=== PATIENT | female | born 1990 | race Caucasian/White ===

== ENCOUNTER 2023-01-23 08:21 | Outpatient (AMB) | payer BC, SELFPAY ==
[2023-01-23 08:31] VITALS: BP 158/100; PULSE 110; O2SAT 100; BMI 37.6
--- NOTE | 2023-01-23 08:31 | A.OFFPC_ITS ---
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 per policy Accompanied by: Self / Same As Patient Allergies No Known Allergies Allergy (Verified 01/23/23 08:31) Medication List - Last Reconciled 01/23/23 by Pardeep Angulo MD levothyroxine 75 mcg PO DAILY sertraline 200 mg PO DAILY sertraline 100 mg PO DAILY Tobacco use date assessed: 05/30/22 Dental Screening Dental Screen Date: 01/23/23 Did you have a dental visit in the last 12 months?: Yes Did you have a dental problem in the last 6 months where you did not have access to dental care?: No Was dental information given to patient?: Patient has dentist HPI 6mth f/u HPI Details hypothyr on rx; has gained 20 lbs PFSH Medical History Obesity Hypertension Hypothyroidism Surgical History No pertinent past surgical history Family History Father Medical history unknown Mother Medical history unknown Family/Other Subarachnoid hemorrhage from multiple aneurysms Afib Substance use disorder Other Mental health disorder Social History Housing: House Alcohol intake: current Alcohol intake frequency: holidays/special occasions only Patient Tobacco Use Status: Never used Tobacco e-Cigarette/Vaping Use: Never Used Second Hand Smoke Exposure: No service: No Current occupational status: employed Cognitive needs: No Hearing needs: No Vision needs: No Questionnaire PHQ-9 Over the last 2 weeks, how often have you been bothered by any of the following problems? 1. Little interest or pleasure in doing things: not at all 2. Feeling down, depressed, or hopeless: not at all 3. Trouble falling or staying asleep, or sleeping too much: not at all 4. Feeling tired or having little energy: not at all 5. Poor appetite or overeating: not at all 6. Feeling bad about yourself - or that you are a failure or have let yourself or your family down: not at all 7. Trouble concentrating on things, such as reading the newspaper or watching television: not at all 8. Moving or speaking so slowly that other people could have noticed. Or the opposite - being so fidgety or restless that you have been moving around a lot more than usual: not at all 9. Thoughts that you would be better off or of hurting yourself in some way: not at all Total score: 0 Depression Screening Interpretation: Negative Depression Screening Done: Yes 38821 - PHQ-9 Billing: Yes Source: Developed by Drs. Po Reynolds, Nelda Martínez, Rigoberto Chauhan and colleagues, with an educational keith from [employer]. Thrive Questionnaire Date Thrive assessed: 05/30/22 AUDIT C Alcohol Use Questionnaire (AUDIT-C) 1. How often do you have a drink containing alcohol?: Monthly or less 2. How many drinks containing alcohol do you have on a typical day when you are drinking?: 1 or 2 3. How often do you have six or more drinks on one occasion?: Never Total Score: 1 Score Reviewed/Action Taken: Yes SANDER-7 AMB Questionnaire SANDER-7 Date SANDER - 7 assessed: 05/30/22 Feeling nervous, anxious, or on edge: 1 = Several days Not being able to stop or control worryin = Several days Worrying too much about different things: 1 = Several days Trouble relaxin = Not at all Being so restless that it is hard to sit still: 0 = Not at all Becoming easily annoyed or irritable: 1 = Several days Feeling afraid as if something awful might happen: 1 = Several days Total SANDER-7 score (0-4 normal; 5-9 mild; 10-14 moderate; 15-21 severe): 5 Source: Developed by Drs. Po Reyonlds, Nelda Martínez, Rigoberto Chauhan and colleagues, with an educational keith from [employer]. SANDER-7 Assessment Billing SANDER-7 Assessment Tool: SANDER-7 Assessment 72153 Review of Systems Const Denies chills, Denies headache(s) and Denies weight loss ENT Denies headache(s) Card Denies chest pain, Denies syncope, Denies irregular heart rhythm and Denies dyspnea Resp Denies chest congestion, Denies cough and Denies dyspnea GI Denies abdominal pain, Denies change in stool character, Denies nausea and Denies vomiting Musc Denies deformity and Denies joint swelling Neuro Denies syncope and Denies headache(s) Physical exam (Primary Care) Vital Signs: Last Vital Signs Pulse 110 H 01/23/23 08:31 BP 158/100 H 01/23/23 08:31 Pulse Ox 100 01/23/23 08:31 Oxygen Delivery Method Room Air 01/23/23 08:31 BMI result Body Mass Index 37.6 Tobacco/Smoking Status: Tobacco use Status Tobacco use date assessed 05/30/22 01/23/23 08:37 Patient Tobacco Use Status Never used Tobacco 01/23/23 08:37 e-Cigarette/Vaping Use Never Used 01/23/23 08:37 PHQ-9: PHQ-9 Score PHQ-9: Total score 0 01/23/23 08:37 Depression Screening Interpretation: Negative Thrive Assessment: Date of Thrive Assessment Date Thrive assessed 05/30/22 01/23/23 08:37 Const General: cooperative, comfortable, no acute distress and alert Neck Neck: Yes no lymphadenopathy Thyroid: Thyroid normal Resp Effort & Inspection: normal respiratory effort Auscultation: clear to auscultation bilaterally Percussion: percussion normal Cardio Jugular venous distension: no JVD Palpation: normal PMI Rate: regular rate Rhythm: regular rhythm Heart sounds: S1 normal heart sound present and S2 normal heart sound present GI Inspection: Yes normal to inspection Palpation (GI): No hepatosplenomegaly present Skin General skin exam: no rashes or lesions noted Extrem General: Yes no clubbing, cyanosis or edema Assessment and Plan Assessment & Plan (1) Hypothyroidism: Code(s): E03.9 - Hypothyroidism, unspecified Plan: labs; f/u 2 weeks Orders: Orders Lipid Panel Today E78.5 - Hyperlipidemia, unspecified Thyroid Stimulating Hormone Today E03.9 - Hypothyroidism, unspecified Comprehensive [place]. Panel Fast Today N28.9 - Disorder of kidney and ureter, unspecified Complete Blood Count Auto Diff Today D64.9 - Anemia, unspecified Coding Level of Care Code Est Pt Level 3 (80532) Diagnoses Hypothyroidism E03.9 Additional Codes SANDER-7 Assessment Billing - SANDER-7 Assessment Tool: SANDER-7 Assessment [id number] ([id number])
== END 2023-01-23 08:52 | disposition home or self-care (01) ==
LOC: HO.HMGH 08:21
PROVIDERS: PCP Internal Medicine; Visit Provider Internal Medicine
DX: E03.9 Hypothyroidism, unspecified (principal)
CPT/HCPCS: 99213

== ENCOUNTER 2023-02-06 08:31 | Outpatient (AMB) | payer BC, SELFPAY ==
[2023-02-06 08:37] VITALS: BP 160/100; PULSE 102; O2SAT 99; BMI 37.6
--- NOTE | 2023-02-06 08:37 | A.OFFPC_ITS ---
Vital Signs 02/06/23 08:37 Height 5 ft 1 in Weight 199 lb BMI 37.6 BP 160/100 H Blood Pressure Location Lt brachial Position Sitting Pulse 102 H Pulse Source Pulse Oximeter Pulse Oximetry (%) 99 Oxygen Delivery Method Room Air Intake Visit Reasons: 2 week f/u Greenhouse Technician Required: No Strip Stamp Straightener: Not Required per policy Accompanied by: Self / Same As Patient Allergies No Known Allergies Allergy (Verified 02/06/23 08:37) Medication List - Last Reconciled 02/06/23 by Pardeep Angulo MD levothyroxine 75 mcg PO DAILY sertraline 200 mg PO DAILY sertraline 100 mg PO DAILY Tobacco use date assessed: 05/30/22 Dental Screening Dental Screen Date: 02/06/23 Did you have a dental visit in the last 12 months?: Yes Did you have a dental problem in the last 6 months where you did not have access to dental care?: No Was dental information given to patient?: Patient has dentist HPI 2 week f/u HPI Details hypothyroidism on rx; doing well; compliant [facility] Medical History Obesity Hypertension Hypothyroidism Surgical History No pertinent past surgical history Family History Father Medical history unknown Mother Medical history unknown Family/Other Subarachnoid hemorrhage from multiple aneurysms Afib Substance use disorder Other Mental health disorder Social History Housing: House Alcohol intake: current Alcohol intake frequency: holidays/special occasions only Patient Tobacco Use Status: Never used Tobacco e-Cigarette/Vaping Use: Never Used Second Hand Smoke Exposure: No service: No Current occupational status: employed Cognitive needs: No Hearing needs: No Vision needs: No Questionnaire PHQ-9 Over the last 2 weeks, how often have you been bothered by any of the following problems? 1. Little interest or pleasure in doing things: not at all 2. Feeling down, depressed, or hopeless: not at all 3. Trouble falling or staying asleep, or sleeping too much: not at all 4. Feeling tired or having little energy: not at all 5. Poor appetite or overeating: not at all 6. Feeling bad about yourself - or that you are a failure or have let yourself or your family down: not at all 7. Trouble concentrating on things, such as reading the newspaper or watching television: not at all 8. Moving or speaking so slowly that other people could have noticed. Or the opposite - being so fidgety or restless that you have been moving around a lot more than usual: not at all 9. Thoughts that you would be better off or of hurting yourself in some way: not at all Total score: 0 Depression Screening Interpretation: Negative Depression Screening Done: Yes 83700 - PHQ-9 Billing: Yes Source: Developed by Drs. Po Reynolds, Nelda Martínez, Rigoberto Chauhan and colleagues, with an educational keith from [employer]. Thrive Questionnaire Date Thrive assessed: 05/30/22 AUDIT C Alcohol Use Questionnaire (AUDIT-C) 1. How often do you have a drink containing alcohol?: Monthly or less 2. How many drinks containing alcohol do you have on a typical day when you are drinking?: 1 or 2 3. How often do you have six or more drinks on one occasion?: Never Total Score: 1 Score Reviewed/Action Taken: Yes SANDER-7 AMB Questionnaire SANDER-7 Date SANDER - 7 assessed: 05/30/22 Source: Developed by Drs. Po Reynolds, Rigoberto Decker and colleagues, with an educational keith from [employer]. Review of Systems Const Denies chills, Denies headache(s) and Denies weight loss ENT Denies headache(s) Card Denies chest pain, Denies syncope, Denies irregular heart rhythm and Denies dyspnea Resp Denies chest congestion, Denies cough and Denies dyspnea GI Denies abdominal pain, Denies change in stool character, Denies nausea and Denies vomiting Musc Denies deformity and Denies joint swelling Neuro Denies syncope and Denies headache(s) Physical exam (Primary Care) Vital Signs: Last Vital Signs Pulse 102 H 02/06/23 08:37 BP 160/100 H 02/06/23 08:37 Pulse Ox 99 02/06/23 08:37 Oxygen Delivery Method Room Air 02/06/23 08:37 BMI result Body Mass Index 37.6 Tobacco/Smoking Status: Tobacco use Status Tobacco use date assessed 05/30/22 02/06/23 08:38 Patient Tobacco Use Status Never used Tobacco 02/06/23 08:38 e-Cigarette/Vaping Use Never Used 02/06/23 08:38 PHQ-9: PHQ-9 Score PHQ-9: Total score 0 02/06/23 08:38 Depression Screening Interpretation: Negative Thrive Assessment: Date of Thrive Assessment Date Thrive assessed 05/30/22 02/06/23 08:38 Const General: cooperative, comfortable, no acute distress and alert Neck Neck: Yes no lymphadenopathy Thyroid: Thyroid normal Resp Effort & Inspection: normal respiratory effort Auscultation: clear to auscultation bilaterally Percussion: percussion normal Cardio Jugular venous distension: no JVD Palpation: normal PMI Rate: regular rate Rhythm: regular rhythm Heart sounds: S1 normal heart sound present and S2 normal heart sound present GI Inspection: Yes normal to inspection Palpation (GI): No hepatosplenomegaly present Skin General skin exam: no rashes or lesions noted Extrem General: Yes no clubbing, cyanosis or edema Assessment and Plan Assessment & Plan (1) Hypothyroidism: Code(s): E03.9 - Hypothyroidism, unspecified Plan: stable; same rx Orders: Orders Thyroid Stimulating Hormone Today E03.9 - Hypothyroidism, unspecified Coding Level of Care Code Est Pt Level 3 (13379) Diagnoses Hypothyroidism E03.9
== END 2023-02-06 09:00 | disposition home or self-care (01) ==
PROVIDERS: PCP Internal Medicine; Visit Provider Internal Medicine
DX: E03.9 Hypothyroidism, unspecified (principal)
CPT/HCPCS: 99213

== ENCOUNTER 2023-06-04 08:54 | Outpatient (AMB) | payer BC, SELFPAY ==
[2023-06-04 08:55] VITALS: BP 156/90; PULSE 90; O2SAT 99; BMI 38.2
--- NOTE | 2023-06-04 08:55 | MHC.PC.OV ---
Vital Signs 06/04/23 08:55 Height 5 ft 1 in Weight 202 lb BMI 38.2 BP 156/90 H Blood Pressure Location Lt brachial Position Sitting Pulse 90 Pulse Source Pulse Oximeter Pulse Oximetry (%) 99 Oxygen Delivery Method Room Air Intake Visit Reasons: Annual Exam Retail Pharmacy Manager Required: No Station Cleaning Porter: Not Required per policy Accompanied by: Self / Same As Patient Allergies No Known Allergies Allergy (Verified 06/04/23 08:55) Medication List - Last Reconciled 06/04/23 by Pardeep Angulo MD levothyroxine 75 mcg PO DAILY sertraline 200 mg PO DAILY sertraline 100 mg PO DAILY Tobacco use date assessed: 06/04/23 Dental Screening Dental Screen Date: 06/04/23 Did you have a dental visit in the last 12 months?: Yes Did you have a dental problem in the last 6 months where you did not have access to dental care?: No Was dental information given to patient?: Patient has dentist HPI Annual Exam HPI Details hypothyr and depression rx. weight gain on zoloft PFSH Medical History Obesity Hypertension Hypothyroidism Surgical History No pertinent past surgical history Family History Father Medical history unknown Mother Medical history unknown Family/Other Subarachnoid hemorrhage from multiple aneurysms Afib Substance use disorder Other Mental health disorder Social History Housing: House Alcohol intake: current Alcohol intake frequency: holidays/special occasions only Patient Tobacco Use Status: Never used Tobacco e-Cigarette/Vaping Use: Never Used Second Hand Smoke Exposure: No service: No Current occupational status: employed Cognitive needs: No Hearing needs: No Vision needs: No Questionnaire PHQ-9 Over the last 2 weeks, how often have you been bothered by any of the following problems? 1. Little interest or pleasure in doing things: not at all 2. Feeling down, depressed, or hopeless: not at all 3. Trouble falling or staying asleep, or sleeping too much: not at all 4. Feeling tired or having little energy: not at all 5. Poor appetite or overeating: not at all 6. Feeling bad about yourself - or that you are a failure or have let yourself or your family down: not at all 7. Trouble concentrating on things, such as reading the newspaper or watching television: not at all 8. Moving or speaking so slowly that other people could have noticed. Or the opposite - being so fidgety or restless that you have been moving around a lot more than usual: not at all 9. Thoughts that you would be better off or of hurting yourself in some way: not at all Total score: 0 Depression Screening Interpretation: Negative Depression Screening Done: Yes 62696 - PHQ-9 Billing: Yes Source: Developed by Drs. Po Reynolds, Nelda Martínez, Rigoberto Chauhan and colleagues, with an educational keith from [employer]. Thrive Questionnaire Date Thrive assessed: 06/04/23 I am a: Patient What is your living situation today?: I have a steady place to live Within the past 12 months, did the food you bought not last and you didn't have the money to get more?: Never true Within the past 12 months, did you worry whether your food would run out before you got money to buy more?: Never true Do you have trouble paying for medicines?: No Do you have trouble getting transportation to medical appointments?: No Do you have trouble paying your heating and electricity bill?: No Do you have trouble taking care of your child, family member or friend?: No Do you have trouble with day-to-day activities such as bathing, preparing meals, shopping, managing finances, etc.?: No Are you currently unemployed and looking for a job?: No Are you interested in more education?: No Please select the resources that you would like help with: None THRIVE Score: 0 AUDIT C Alcohol Use Questionnaire (AUDIT-C) 1. How often do you have a drink containing alcohol?: Monthly or less 2. How many drinks containing alcohol do you have on a typical day when you are drinking?: 1 or 2 3. How often do you have six or more drinks on one occasion?: Never Total Score: 1 Score Reviewed/Action Taken: Yes SANDER-7 AMB Questionnaire SANDER-7 Date SANDER - 7 assessed: 06/04/23 Feeling nervous, anxious, or on edge: 0 = Not at all Not being able to stop or control worryin = Not at all Worrying too much about different things: 0 = Not at all Trouble relaxin = Not at all Being so restless that it is hard to sit still: 0 = Not at all Becoming easily annoyed or irritable: 0 = Not at all Feeling afraid as if something awful might happen: 0 = Not at all Total SANDER-7 score (0-4 normal; 5-9 mild; 10-14 moderate; 15-21 severe): 0 Source: Developed by Drs. Po Reynolds, Nelda Martínez, Rigoberto Chauhan and colleagues, with an educational keith from [employer]. SANDER-7 Assessment Billing SANDER-7 Assessment Tool: SANDER-7 Assessment 05219 Review of Systems Const Denies chills, Denies fatigue, Denies headache(s) and Denies weight loss Eyes Denies change in vision, Denies diplopia and Denies eye pain ENT Denies vertigo, Denies dizziness, Denies headache(s) and Denies nasal discharge Card Denies chest pain, Denies rapid heart rate and Denies dyspnea on exertion Resp Denies chest congestion, Denies cough, Denies pain with cough and Denies dyspnea on exertion GI Denies abdominal pain, Denies hematochezia and Denies change in bowel habits Musc Denies myalgias, Denies arthralgias and Denies joint swelling Skin/Breast Denies lesions and Denies unusual bruising Neuro Denies vertigo, Denies dizziness, Denies headache(s) and Denies focal weakness Endo Denies fatigue Physical exam (Primary Care) Vital Signs: Last Vital Signs Pulse 90 06/04/23 08:55 BP 156/90 H 06/04/23 08:55 Pulse Ox 99 06/04/23 08:55 Oxygen Delivery Method Room Air 06/04/23 08:55 BMI result Body Mass Index 38.2 Tobacco/Smoking Status: Tobacco use Status Tobacco use date assessed 06/04/23 06/04/23 09:00 Patient Tobacco Use Status Never used Tobacco 06/04/23 09:00 e-Cigarette/Vaping Use Never Used 06/04/23 09:00 PHQ-9: PHQ-9 Score PHQ-9: Total score 0 06/04/23 09:00 Depression Screening Interpretation: Negative Thrive Assessment: Date of Thrive Assessment Date Thrive assessed 06/04/23 06/04/23 09:00 Const General: cooperative, healthy appearing and no acute distress Orientation/consciousness: oriented to person, oriented to place and oriented to time HENMT Head: Yes normal to inspection, Yes normocephalic and Yes atraumatic Mouth: Normal oral and palatal mucosa present and tongue normal Throat: Yes posterior oropharynx normal and Yes uvula midline Eyes General: appearance normal, both eyes and all related structures Neck Neck: Yes normal visual inspection, Yes full ROM and Yes no lymphadenopathy Thyroid: Thyroid normal Carotids: normal carotid upstroke Chest Chest palpation & inspection: normal inspection of the chest Resp Effort & Inspection: normal respiratory effort and able to speak in complete sentences Auscultation: clear to auscultation bilaterally Cardio Jugular venous distension: no JVD Palpation: normal PMI Rate: regular rate Rhythm: regular rhythm Heart sounds: S1 normal heart sound present and S2 normal heart sound present GI Inspection: Yes normal to inspection Palpation (GI): Soft to palpation and No hepatosplenomegaly present Auscultation: normal bowel sounds General: Yes no CVA tenderness Back/Spine/Pelvis Back: no CVA tenderness Skin General skin exam: no rashes or lesions noted Neuro General: oriented to person, oriented to place and oriented to time Extrem General: Yes normal to inspection and Yes full ROM Assessment and Plan Assessment & Plan (1) Physical exam: Code(s): Z00.00 - Encounter for general adult medical examination without abnormal findings Plan: labs (2) Hypothyroidism: Code(s): E03.9 - Hypothyroidism, unspecified Plan: labs (3) Major depression, recurrent, chronic: Code(s): F33.9 - Major depressive disorder, recurrent, unspecified Plan: doing well; will taper zoloft Orders: Orders Lipid Panel Today E78.5 - Hyperlipidemia, unspecified Complete Blood Count Auto Diff Today D64.9 - Anemia, unspecified Comprehensive [place]. Panel Fast Today N28.9 - Disorder of kidney and ureter, unspecified Thyroid Stimulating Hormone Today E03.9 - Hypothyroidism, unspecified Referrals Dermatology Referral Z12.83 - Encounter for screening for malignant neoplasm of skin Coding Level of Care Code Est Pt Prev Care 18-39y(24316) Diagnoses Physical exam Z00.00 Hypothyroidism E03.9 Major depression, recurrent, chronic F33.9 Additional Codes SANDER-7 Assessment Billing - SANDER-7 Assessment Tool: SANDER-7 Assessment [id number] ([id number])
== END 2023-06-04 09:36 | disposition home or self-care (01) ==
PROVIDERS: Visit Provider Internal Medicine
DX: Z00.00 Encounter for general adult medical examination without abnormal findings (principal); E03.9 Hypothyroidism, unspecified; F33.9 Major depressive disorder, recurrent, unspecified
CPT/HCPCS: 99395

== ENCOUNTER 2023-07-07 07:48 | Outpatient (REF) | payer BC, SELFPAY ==
[2023-07-07 11:35] LABS: MANUAL DIFF FLAG NO
[2023-07-07 11:39] LABS: Basophils Absolute Auto 0.1 X10*3/uL (0.0-0.2); Basophils Percent Auto 0.6 % (0-2); Eosinophils Absolute Auto 0.2 X10*3/uL (0.0-0.4); Eosinophils Percent Auto 2.4 % (0-4); Hematocrit 40.4 % (37.0-47.0); Hemoglobin 13.2 g/dl (12.0-16.0); Imm Gran Abs Auto 0.03 X10*3/uL (0.00-0.03); Imm Gran Pct Auto 0.4 % (0.0-0.4); Lymphocytes Absolute Auto 1.9 X10*3/uL (1.2-4.9); Lymphocytes Percent Auto 23.9 % (20-40); Mean Corpuscular HGB Conc 32.7 g/dl (31.0-35.0); Mean Corpuscular Hemoglobin 28.4 pg (27.0-33.0); Mean Corpuscular Volume 86.9 fL (80.0-98.0); Mean Platelet Volume 10.5 fL (9.4-12.3); Monocytes Absolute Auto 0.4 X10*3/uL (0.1-1.2); Monocytes Percent Auto 5.4 % (2-11); Neutrophils Absolute Auto 5.4 x10*3/uL (2.0-8.3); Neutrophils Percent Auto 67.3 % (45-73); Platelet Count 270 X10*3/uL (160-400); Red Blood Count 4.65 X10*6/uL (4.20-5.50); Red Cell Distribution Width 13.4 % (11.0-16.0)
[2023-07-07 12:54] LABS: Alanine Aminotransferase 28 U/L (0-31); Albumin Level 4.2 g/dL (3.5-5.0); Alkaline Phosphatase 55 U/L (39-117); Anion Gap 12 (12-20); Aspartate Amino Transferase 13 U/L (5-31); Bilirubin Total 0.4 mg/dL (0.0-1.0); Blood Urea Nitrogen 11 mg/dL (9-16); Calcium 9.2 mg/dL (8.4-10.2); Carbon Dioxide 27 mmol/L (22-29); Chloride 103 mmol/L (96-108); Cholesterol 170 mg/dL (<200); Estimated Glomerular Filt Rate > 60; Glucose Fasting 86 mg/dL (60-99); HDL Cholesterol 45 mg/dL (>40); LDL Cholesterol Calculated 104 mg/dL (<100); Potassium 4.1 mmol/L (3.3-5.1); Sodium 138 mmol/L (135-145); Thyroid Stimulating Hormone 3.72 uIU/mL (0.32-4.0); Total Protein 7.5 g/dL (6.5-8.0); Triglycerides 108 mg/dL (<150)
== END 2023-07-07 07:49 | disposition home or self-care (01) ==
LOC: HO.WFDLDS 07:48
PROVIDERS: Visit Provider Internal Medicine
DX: D64.9 Anemia, unspecified (principal); N28.9 Disorder of kidney and ureter, unspecified; E03.9 Hypothyroidism, unspecified; E78.5 Hyperlipidemia, unspecified
CPT/HCPCS: 36415; 80053; 80061; 84443; 85025

== ENCOUNTER 2023-09-03 09:22 | Outpatient (AMB) | payer BC, SELFPAY ==
[2023-09-03 09:24] VITALS: BP 148/100; PULSE 92; O2SAT 98; BMI 38.5
--- NOTE | 2023-09-03 09:24 | A.OFFPC_ITS ---
Vital Signs 09/03/23 09:24 Height 5 ft 1 in Weight 204 lb BMI 38.5 BP 148/100 H Blood Pressure Location Lt brachial Position Sitting Pulse 92 Pulse Source Pulse Oximeter Pulse Oximetry (%) 98 Oxygen Delivery Method Room Air Intake Visit Reasons: 3mth f/u Director Of Public Works Required: No Electrical Fitter: Not Required per policy Accompanied by: Self / Same As Patient Allergies No Known Allergies Allergy (Verified 09/03/23 09:25) Medication List - Last Reconciled 09/03/23 by Pardeep Angulo MD levothyroxine 75 mcg PO DAILY sertraline 150 mg (1.5 x 100 mg) PO DAILY Tobacco use date assessed: 06/04/23 Dental Screening Dental Screen Date: 06/04/23 HPI 3mth f/u HPI Details hypothyroidism on rx; compliant and doing well PFSH Medical History Obesity Hypertension Hypothyroidism Surgical History No pertinent past surgical history Family History Father Medical history unknown Mother Medical history unknown Family/Other Subarachnoid hemorrhage from multiple aneurysms Afib Substance use disorder Other Mental health disorder Social History Housing: House Alcohol intake: current Alcohol intake frequency: holidays/special occasions only Patient Tobacco Use Status: Never used Tobacco e-Cigarette/Vaping Use: Never Used Second Hand Smoke Exposure: No service: No Current occupational status: employed Cognitive needs: No Hearing needs: No Vision needs: No Questionnaire Thrive Questionnaire Date Thrive assessed: 06/04/23 SANDER-7 AMB Questionnaire SANDER-7 Date SANDER - 7 assessed: 06/04/23 Source: Developed by Drs. Po Reynolds, Nelda Martínez, Rigoberto Chauhan and colleagues, with an educational keith from [employer]. Review of Systems Const Denies chills, Denies headache(s) and Denies weight loss ENT Denies headache(s) Card Denies chest pain, Denies syncope, Denies irregular heart rhythm and Denies dyspnea Resp Denies chest congestion, Denies cough and Denies dyspnea GI Denies abdominal pain, Denies change in stool character, Denies nausea and Denies vomiting Musc Denies deformity and Denies joint swelling Neuro Denies syncope and Denies headache(s) Physical exam (Primary Care) Vital Signs: Last Vital Signs Pulse 92 09/03/23 09:24 BP 148/100 H 09/03/23 09:24 Pulse Ox 98 09/03/23 09:24 Oxygen Delivery Method Room Air 09/03/23 09:24 BMI result Body Mass Index 38.5 Tobacco/Smoking Status: Tobacco use Status Tobacco use date assessed 06/04/23 09/03/23 09:29 Patient Tobacco Use Status Never used Tobacco 09/03/23 09:29 e-Cigarette/Vaping Use Never Used 09/03/23 09:29 Thrive Assessment: Date of Thrive Assessment Date Thrive assessed 06/04/23 09/03/23 09:29 Const General: cooperative, comfortable, no acute distress and alert Neck Neck: Yes no lymphadenopathy Thyroid: Thyroid normal Resp Effort & Inspection: normal respiratory effort Auscultation: clear to auscultation bilaterally Percussion: percussion normal Cardio Jugular venous distension: no JVD Palpation: normal PMI Rate: regular rate Rhythm: regular rhythm Heart sounds: S1 normal heart sound present and S2 normal heart sound present GI Inspection: Yes normal to inspection Palpation (GI): No hepatosplenomegaly present Skin General skin exam: no rashes or lesions noted Extrem General: Yes no clubbing, cyanosis or edema Assessment and Plan Assessment & Plan Orders: Referrals [employer] Nutrition Referral E66.9 - Obesity, unspecified Coding Level of Care Code Est Pt Level 3 (61790)
== END 2023-09-03 09:47 | disposition home or self-care (01) ==
PROVIDERS: PCP Internal Medicine; Visit Provider Internal Medicine
DX: E03.9 Hypothyroidism, unspecified (principal)
CPT/HCPCS: 99213

== ENCOUNTER 2023-10-07 08:28 | Outpatient (AMB) | payer BC, SELFPAY ==
[2023-10-07 08:33] VITALS: BMI 38.9
--- NOTE | 2023-10-07 08:33 | A.OFFVIS_ITS ---
VS Expanded 10/07/23 08:33 10/07/23 08:51 Height 5 ft 1 in 5 ft 1 in Weight 205 lb 11.06 oz 205 lb BMI 38.9 38.7 Intake Visit Reasons: Obesity-confirmed Allergies No Known Allergies Allergy (Verified 09/03/23 09:25) Nutrition Presentation Details: Pt presents for MNT for obesity. Pt was referred by Dr. Angulo food frequency fish: not including fruit: not including dairy: mostly cheese vegetables : once/wk water: 6-8 oz , coffee etoh: occ smoking/edible: denies P BS Monitoring Most Recent Diabetes Results: Cholesterol 170 mg/dL (<200) 07/07/23 HDL Cholesterol 45 mg/dL (>40) 07/07/23 Triglycerides 108 mg/dL (<150) 07/07/23 Creatinine 0.68 mg/dL (0.5-1.4) 07/07/23 Blood Urea Nitrogen 11 mg/dL (9-16) 07/07/23 Sodium 138 mmol/L (135-145) 07/07/23 Potassium 4.1 mmol/L (3.3-5.1) 07/07/23 Chloride 103 mmol/L (96-108) 07/07/23 Carbon Dioxide 27 mmol/L (22-29) 07/07/23 Calcium 9.2 mg/dL (8.4-10.2) 07/07/23 AST 13 U/L (5-31) 07/07/23 ALT 28 U/L (0-31) 07/07/23 Total Protein 7.5 g/dL (6.5-8.0) 07/07/23 Albumin 4.2 g/dL (3.5-5.0) 07/07/23 PEL-Vzawltt-Pi.Jeor Equation Height: 5 ft 1 in Weight: 205 lb Resting Metabolic Rate: 1573.95 Calculated Activity Level: Sedentary Calories Needed to Maintain Weight: 1888.74 Diagnosis Nutrition problem #1: food nutri know defi As related to (etiology) #1: diagnosis Nutrition problem #2: food nutri know defi Monitoring/Goals Nutrition problem monitoring: level of knowledge/skill and weight PFSH Medical History Obesity Hypertension Hypothyroidism Surgical History No pertinent past surgical history Family History Father Medical history unknown Mother Medical history unknown Family/Other Subarachnoid hemorrhage from multiple aneurysms Afib Substance use disorder Other Mental health disorder Social History Housing: House Alcohol intake: current Alcohol intake frequency: holidays/special occasions only Patient Tobacco Use Status: Never used Tobacco e-Cigarette/Vaping Use: Never Used Second Hand Smoke Exposure: No service: No Current occupational status: employed Cognitive needs: No Hearing needs: No Vision needs: No Assessment & Plan Assessment & Plan (1) Obesity: Code(s): E66.9 - Obesity, unspecified Category: Medical Plan: Wt: 93 Kg ( 09/2023 ) Est kcal needs as per MSJ: 6158-9204 (40% carb, 30% protein/fat) Est fluid needs as per 25-30 ml/d: 2800 Est prot per day as per 1 g/kg bw: 93 Recommend fiber intake : 8-10 g per day and gradually increase to 25-28 g per day for women and 35-38 g for men or as tolerated Recommend sodium intake per day : less than 2000 mg Educated patient on: ( R = reviewed V = verbalizes understanding N/R = needs review N/A = not applicable * Food sources of carbohydrate, adequate serving sizes and its role in various health conditions: R V N/R * Differences between complex carbohydrates a simple carbohydrates, role of fiber in diet: R V N/R * Lean protein sources of foods: R V NR * Differences between types of fats and role in diet (mono on saturated fat fatty acids, saturated fatty acids, trans fats): R V N/R * Food sources of sodium in salt and healthy modifications for heart health in kidney health: R V R/V * Vitamins and minerals: R V N/R * Healthy plate method concept: R * mindful eating strategies: R * Physical activity: Benefits a precaution: R V N/R * Patient Instructions: Practice mindful eating strategies, Have 3 meals/day following healthy plate method Coding Level of Care Code Nutr Indiv Intake (85980) Diagnoses Obesity E66.9 Time Spent (min) 30
[2023-10-13 13:54] VITALS: BMI 38.7
== END 2023-10-07 09:07 | disposition home or self-care (01) ==
PROVIDERS: PCP Internal Medicine; Visit Provider Dietitian, Registered
DX: E66.9 Obesity, unspecified (principal)

== ENCOUNTER → 2023-10-07 08:28 | Outpatient (BNVA) | payer BC, SELFPAY | PROVIDERS: PCP Internal Medicine; Visit Provider Dietitian, Registered | DX: E66.9 Obesity, unspecified (principal); Z68.38 Body mass index [BMI] 38.0-38.9, adult; Z71.3 Dietary counseling and surveillance | CPT/HCPCS: 97802 ==

== ENCOUNTER 2023-12-16 08:57 | Outpatient (AMB) | payer BC, SELFPAY ==
[2023-12-16 08:58] VITALS: BP 142/94; PULSE 80; O2SAT 99; BMI 39.1
--- NOTE | 2023-12-16 08:58 | MHC.PC.OV ---
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 Required: No Accompanied by: Self / Same As Patient Allergies No Known Allergies Allergy (Verified 12/16/23 09:03) Medication List - Last Reconciled 12/16/23 by Pardeep Angulo MD levothyroxine 75 mcg PO DAILY sertraline 150 mg (1.5 x 100 mg) PO DAILY Tobacco use date assessed: 06/04/23 Dental Screening Dental Screen Date: 06/04/23 HPI 3 mo f/u HPI Details hypothyroidism on rx; due for labs [facility] Medical History Obesity Hypertension Hypothyroidism Surgical History No pertinent past surgical history Family History Father Medical history unknown Mother Medical history unknown Family/Other Subarachnoid hemorrhage from multiple aneurysms Afib Substance use disorder Other Mental health disorder Social History Housing: House Alcohol intake: current Alcohol intake frequency: holidays/special occasions only Patient Tobacco Use Status: Never used Tobacco Tobacco use type: Cigarette e-Cigarette/Vaping Use: Never Used Second Hand Smoke Exposure: No service: No Current occupational status: employed Cognitive needs: No Hearing needs: No Vision needs: No Questionnaire PHQ-9 Over the last 2 weeks, how often have you been bothered by any of the following problems? 1. Little interest or pleasure in doing things: not at all 2. Feeling down, depressed, or hopeless: not at all 3. Trouble falling or staying asleep, or sleeping too much: not at all 4. Feeling tired or having little energy: not at all 5. Poor appetite or overeating: not at all 6. Feeling bad about yourself - or that you are a failure or have let yourself or your family down: not at all 7. Trouble concentrating on things, such as reading the newspaper or watching television: not at all 8. Moving or speaking so slowly that other people could have noticed. Or the opposite - being so fidgety or restless that you have been moving around a lot more than usual: not at all 9. Thoughts that you would be better off or of hurting yourself in some way: not at all Total score: 0 Depression Screening Interpretation: Negative Depression Screening Done: Yes 70010 - PHQ-9 Billing: Yes Source: Developed by Drs. Po Reynolds, Rigoberto Decker and colleagues, with an educational keith from [employer]. Thrive Questionnaire Date Thrive assessed: 06/04/23 Are you currently unemployed and looking for a job?: Yes AUDIT C Alcohol Use Questionnaire (AUDIT-C) 3. How often do you have six or more drinks on one occasion?: Never Total Score: 0 SANDER-7 AMB Questionnaire SANDER-7 Date SANDER - 7 assessed: 06/04/23 Source: Developed by Drs. Po Reynolds, Nelda Martínez, Rigoberto Chauhan and colleagues, with an educational keith from [employer]. Review of Systems Const Denies chills, Denies headache(s) and Denies weight loss ENT Denies headache(s) Card Denies chest pain, Denies syncope, Denies irregular heart rhythm and Denies dyspnea Resp Denies chest congestion, Denies cough and Denies dyspnea GI Denies abdominal pain, Denies change in stool character, Denies nausea and Denies vomiting Musc Denies deformity and Denies joint swelling Neuro Denies syncope and Denies headache(s) Physical exam (Primary Care) Vital Signs: Last Vital Signs Pulse 80 12/16/23 08:58 BP 142/94 H 12/16/23 08:58 Pulse Ox 99 12/16/23 08:58 Oxygen Delivery Method Room Air 12/16/23 08:58 BMI result Body Mass Index 39.1 Tobacco/Smoking Status: Tobacco use Status Tobacco use date assessed 06/04/23 12/16/23 09:00 Patient Tobacco Use Status Never used Tobacco 12/16/23 09:00 Tobacco use type Cigarette 12/16/23 09:00 e-Cigarette/Vaping Use Never Used 12/16/23 09:00 PHQ-9: PHQ-9 Score PHQ-9: Total score 0 12/16/23 09:03 Depression Screening Interpretation: Negative Thrive Assessment: Date of Thrive Assessment Date Thrive assessed 06/04/23 12/16/23 09:00 Const General: cooperative, comfortable, no acute distress and alert Neck Neck: Yes no lymphadenopathy Thyroid: Thyroid normal Resp Effort & Inspection: normal respiratory effort Auscultation: clear to auscultation bilaterally Percussion: percussion normal Cardio Jugular venous distension: no JVD Palpation: normal PMI Rate: regular rate Rhythm: regular rhythm Heart sounds: S1 normal heart sound present and S2 normal heart sound present GI Inspection: Yes normal to inspection Palpation (GI): No hepatosplenomegaly present Skin General skin exam: no rashes or lesions noted Extrem General: Yes no clubbing, cyanosis or edema Coding Level of Care Code Est Pt Level 3 (05746) Diagnoses Hypothyroidism E03.9 Assessment & Plan Assessment & Plan (1) Hypothyroidism: Code(s): E03.9 - Hypothyroidism, unspecified Category: Medical Plan: stable; same rx Orders: Orders Thyroid Stimulating Hormone Today Z13.29 - Encounter for screening for other suspected endocrine disorder Referrals Medical Weight Management Referral E66.9 - Obesity, unspecified
== END 2023-12-16 09:20 | disposition home or self-care (01) ==
LOC: HO.HMCH 08:57
PROVIDERS: PCP Internal Medicine; Visit Provider Internal Medicine
DX: E03.9 Hypothyroidism, unspecified (principal)

== ENCOUNTER → 2023-12-16 08:57 | Outpatient (BNVA) | payer BC, SELFPAY | PROVIDERS: PCP Internal Medicine; Visit Provider Internal Medicine ==